=== PATIENT | female | born 1985 | race Two or more races ===

== ENCOUNTER 2016-12-14 15:50 | Emergency (ER) | payer BC ==
[~2016-12-14] VITALS: Wt 68.5 kg
[~2016-12-14 15:50] MED LIST: ACET500C5 PO; FOLI-49; VIT1TABL65
[2016-12-14 17:12] LABS: ADD SCAN DIFF NO
[2016-12-14 17:15] LABS: BASOPHILS % 0.3 % (0.0-2.0); EOSINOPHILS # 0.1 10^3/ul (0.0-0.5); EOSINOPHILS % 1.5 % (0.0-7.0); HEMATOCRIT 39.6 % (37.0-47.0); HEMOGLOBIN 12.7 g/dl (12.0-16.0); LYMPHOCYTES # 2.2 10^3/ul (0.8-2.9); LYMPHOCYTES % 28.4 % (15.0-51.0); MEAN CORPUSCULAR HEMOGLOBIN 29.5 pg (29.0-33.0); MEAN CORPUSCULAR HGB CONC 32.1 g/dl (32.0-37.0); MEAN CORPUSCULAR VOLUME 91.9 fl (82.0-101.0); MEAN PLATELET VOLUME 9.2 fl (7.4-10.4); MONOCYTE # 0.4 10^3/ul (0.3-0.9); MONOCYTES % 5.5 % (0.0-11.0); PLATELET COUNT 293 10^3/UL (140-415); RED BLOOD COUNT 4.31 10^6/ul (4.20-5.40); WHITE BLOOD COUNT 7.8 10^3/ul (4.8-10.8)
[2016-12-14 17:36] LABS: ALBUMIN 4.2 g/dl (3.3-4.9); ALBUMIN/GLOBULIN RATIO 1.16; BILIRUBIN,INDIRECT 0.2 mg/dl (0-1.1); BILIRUBIN,TOTAL 0.2 mg/dl (0.2-1.3); CREATININE 0.55 mg/dl (0.44-1.00); POTASSIUM 3.8 mmol/L (3.5-5.1); TOTAL PROTEIN 7.8 g/dl (6.1-8.1)
--- NOTE | 2016-12-14 17:56 | ERD ---
ER Documentation Chief Complaint Date/Time DATE: 12/14/16 TIME: 17:53 Chief Complaint ABD PAIN X 3 DAYS HPI 31-year-old female accompanied by her complaining of left lower quadrant abdominal pain 3 days. Patient stated the pain is constant and sharp. Pain is worse with movement. Patient LMP was 12/02/2016, and lasted 3-4 days. 3 days ago, she started spotting again. She does not know whether she is currently , she is not taking any control. Patient is SAB 1. Denies fever or chills. Denies dysuria. Denies vomiting or diarrhea. Denies trauma. Denies any past medical history. ROS All systems reviewed and are negative except as per history of present illness. Medications Home Meds Active Scripts Ibuprofen* (Motrin*) 600 Mg Tab, 600 MG PO Q6H Y for PAIN AND OR ELEVATED TEMP, #30 TAB Prov:SOUMYA MORALES BANQUET COORDINATOR 12/14/16 Acetaminophen* (Tylophen*) 500 Mg Capsule, 1 CAP PO Q6H Y for PAIN AND OR ELEVATED TEMP, #20 CAP Prov:SHANIQUA BHAT BANQUET COORDINATOR 08/23/15 Reported Medications Vit D3 & K/Berberine Hcl/Hops (Ostera Tablet) 1 Each Tablet 09/26/12 Folic Acid* (Folic Acid*) 1 Mg Tablet 09/26/12 Allergies Allergies: Coded Allergies: No Known Allergy (Unverified , 09/19/13) PMhx/Soc History of Surgery: Yes ( section) Anesthesia Reaction: No Hx Neurological Disorder: No Hx Respiratory Disorders: No Hx Cardiac Disorders: No Hx Psychiatric Problems: No Hx Miscellaneous Medical Probl: No Hx Alcohol Use: No Hx Substance Use: No Hx Tobacco Use: No Physical Exam Vitals Vital Signs Date Time Temp Pulse Resp B/P Pulse Ox O2 Delivery O2 Flow Rate FiO2 12/14/16 20:19 18 102/69 99 12/14/16 15:54 98.0 79 18 102/69 99 Physical Exam General impression: Well-developed, well-nourished. Alert, oriented, in no acute distress Head: Normocephalic, atraumatic. Eyes: PERRL, EOM normal. Sclerae are normal. Conjunctiva not injected. Neck: Supple, nontender. No lymphadenopathy. No nuchal rigidity. Respiration: Normal respiratory effort. Lungs clear to auscultate bilaterally. No wheezes, rales or rhonchi. Cardiovascular: Regular rate and rhythm. No murmurs or extra heart sounds. Abdomen: Abdomen normal to inspection. Mild left lower quadrant tenderness. No masses or organomegaly. Bowel sounds normal. Back: Normal to inspection. No midline spine tenderness. No CVA tenderness. Extremities: Extremities normal to inspection, nontender. ROM normal. Neuro: Mental status normal, speech normal. ST[employer] grossly intact. Skin: Normal turgor. No rash or lesions. Psych: Normal mood and affect. Result Diagram: 12/14/16 1700 12/14/16 1700 Results 24 hrs Laboratory Tests Test 12/14/16 17:00 12/14/16 17:32 White Blood Count 7.810^3/ul Red Blood Count 4.3110^6/ul Hemoglobin 12.7g/dl Hematocrit 39.6% Mean Corpuscular Volume 91.9fl Mean Corpuscular Hemoglobin 29.5pg Mean Corpuscular Hemoglobin Concent 32.1g/dl Red Cell Distribution Width 12.0% Platelet Count 19090^3/UL Mean Platelet Volume 9.2fl Neutrophils % 64.0% Lymphocytes % 28.4% Monocytes % 5.5% Eosinophils % 1.5% Basophils % 0.3% Nucleated Red Blood Cells % 0.0/100WBC Neutrophils # 5.010^3/ul Lymphocytes # 2.210^3/ul Monocytes # 0.410^3/ul Eosinophils # 0.110^3/ul Basophils # 0.010^3/ul Nucleated Red Blood Cells # 0.010^3/ul Sodium Level 140mmol/L Potassium Level 3.8mmol/L Chloride Level 105mmol/L Carbon Dioxide Level 28mmol/L Anion Gap 11 Blood Urea Nitrogen 10mg/dl Creatinine 0.55mg/dl Glucose Level 119mg/dl Calcium Level 9.0mg/dl Total Bilirubin 0.2mg/dl Direct Bilirubin 0.00mg/dl Indirect Bilirubin 0.2mg/dl Aspartate Amino Transf (AST/SGOT) 25IU/L Alanine Aminotransferase (ALT/SGPT) 31IU/L Alkaline Phosphatase 67IU/L Total Protein 7.8g/dl Albumin 4.2g/dl Globulin 3.60g/dl Albumin/Globulin Ratio 1.16 Lipase 132U/L Beta HCG, Quantitative < 2.4mIU/ml Urine Color LT. YELLOW Urine Clarity CLEAR Urine pH 5.5 Urine Specific [place] <=1.005 Urine Ketones NEGATIVE Urine Nitrite NEGATIVE Urine Bilirubin NEGATIVE Urine Urobilinogen 0.2 E.U./dL Urine Leukocyte Esterase NEGATIVE Urine Microscopic RBC 0-2/HPF Urine Microscopic WBC 0-2/HPF Urine Squamous Epithelial Cells FEW Urine Hemoglobin TRACE Urine Glucose NEGATIVE% Urine Total Protein NEGATIVE Urine Test NEGATIVE PROCEDURE: US Pelvis CLINICAL INDICATION: Pelvic pain TECHNIQUE: Sonographic evaluation of the pelvis was performed utilizing both transabdominal and transvaginal technique. Curved array transabdominal transducer technique as well as a high frequency endovaginal probe was utilized. Images were reviewed on the high-resolution PACS workstation. COMPARISON: None available FINDINGS: The uterus is normal in size, echogenicity, and morphology measuring 5.0 x 2.1 x 4.4 cm in dimension. The uterus is retroverted. The endometrium measures 4.8 mm in diameter. The normal trilaminar stripe of the endometrium is preserved. Cervical Nabothian cysts are incidentally noted. The right ovary measures 3.8 x 2.4 x 3.3 cm in dimension. The left ovary measures 2.7 x 2.1 x 2.6 cm in dimension. No ovarian torsion, adnexal mass or pelvic free fluid is identified. IMPRESSION: 1. Unremarkable ultrasound of the pelvis. RPTAT: HDWR .West Monique MD, MD Date Time Electronically viewed and signed by .West Monique MD, MD on 12/14/2016 20: 04 .R/ CC: SOUMYA MORALES. BANQUET COORDINATOR Procedures/MDM Well-appearing 31-year-old female presented ED with left-sided pelvic pain 3 days. Her is negative. CBC, CMP, lipase, and UA are also negative. Pelvic ultrasound unremarkable. I doubt ectopic , ruptured ovarian cyst, ovarian torsion, diverticulitis. I suspect her pain is due to ovulation. Patient appears well, stable for discharge and outpatient management. Medical decision making shared with patient and family. Education provided to patient and family. Patient and family expressed understanding of the plan. Medications on discharge: Ibuprofen. Follow-up: Primary care provider in 2-3 days or return to ED if worse. The case was reviewed and discussed with Dr. Bhagat, who agrees with the plan of care including labs, treatment, and advanced imaging as appropriate. Departure Diagnosis: Primary Impression: Pelvic pain Condition: SOUMYA Rubio NP Dec 14, 2016 17:56
[2016-12-14 18:05] LABS: ADD UMIC YES; URINE BILIRUBIN (Dip) NEGATIVE (NEGATIVE); URINE BLOOD (Dip) TRACE (NEGATIVE); URINE COLOR LT. YELLOW (YELLOW); URINE GLUCOSE (Dip) NEGATIVE (NEGATIVE); URINE KETONES (Dip) NEGATIVE (NEGATIVE); URINE LEUKOCYTE ESTERASE (Dip) NEGATIVE (NEGATIVE); URINE NITRITE (Dip) NEGATIVE (NEGATIVE); URINE TOTAL PROTEIN (Dip) NEGATIVE (NEGATIVE); URINE UROBILINOGEN (Dip) 0.2 E.U./dL (0.1-1.0)
[2016-12-14 18:14] LABS: SQUAMOUS EPITHELIAL CELL,UR FEW; URINE RBCS 0-2 /HPF (0)
--- NOTE | 2016-12-14 20:05 | RADRPT ---
PROCEDURE: US Pelvis CLINICAL INDICATION: Pelvic pain TECHNIQUE: Sonographic evaluation of the pelvis was performed utilizing both transabdominal and tr ansvaginal technique. Curved array transabdominal transducer technique as well as a high frequency endovaginal probe was utilized. Images were reviewed on the high-resolution PACS workstation. COMPARISON: None available FINDINGS: The uterus is normal in size, echogenicity, and morphology measuring 5.0 x 2.1 x 4.4 cm in dimension . The uterus is retroverted. The endometrium measures 4.8 mm in diameter. The normal trilaminar stripe of the endometrium is preserved. Cervical Nabothian cysts are incidentally noted. The right ovary measures 3.8 x 2.4 x 3.3 cm in dimension. The left ovary measures 2.7 x 2.1 x 2.6 c m in dimension. No ovarian torsion, adnexal mass or pelvic free fluid is identified. IMPRESSION: 1. Unremarkable ultrasound of the pelvis. RPTAT: HDWR .West Monique MD, MD Date Time Electronically viewed and signed by .West Monique MD, on 12/14/2016 20:04 .R/
[2016-12-14] MEDS ORDERED: IBUP-1542 PO (20:06)
[2016-12-14 20:19] VITALS: BP 102/69; RESP 18
== END 2016-12-14 20:23 | disposition home or self-care (01) ==
LOC: FTE 15:50
DX: R10.2 Pelvic and perineal pain (principal); Z33.1 Pregnant state, incidental
CPT/HCPCS: 36415; 76830; 76856; 80053; 81001; 83690; 84702; 84703; 85025; Z7502; 81003